=== PATIENT | male | born 1945 ===

== ENCOUNTER 2020-04-15 19:39 | Inpatient (IN) ==
[2020-04-16 09:58] LABS: Hemoglobin 12.8 gm/dL (13.5-18.0); Mean Cell Volume 89.7 fl (78-100); Mean Corpuscular Hgb Conc 31.2 g/dl (32-36); Mean Platelet Volume 8.9 fl (8-11.3); Neutrophil # 8.3 K/mm3 (1.3-6.0); Neutrophil % 88.2 % (42-75.0); Platelet Count 279 K/mm3 (150-450); Red Blood Count 4.57 M/mm3 (4.7-6.0); Red Cell Distribution Width 13.9 % (11.5-14.0); White Blood Count 9.4 K/mm3 (4.0-10.5)
[2020-04-16 10:11] LABS: Albumin * 3.1 gm/dl (3.4-5.0); Anion Gap 11.1 mmol/L (6.8-13.8); BUN/Creatinine Ratio 16.1 (9.0-21.6); Bilirubin, Total 0.6 mg/dL (0.0-1.1); Ca. Corrected For Albumin 9.1 mg/dL (8.4-10.2); Calcium * 8.7 mg/dL (7.9-10.9); Carbon Dioxide 29.2 mmol/L (24-32.6); Potassium 4.3 mmol/L (3.4-4.6); Total Protein 7.3 gm/dL (6.2-8.2)
[2020-04-16 10:14] LABS: Prothrombin Time (Patient) 13.1 Seconds (9.1-10.7)
[2020-04-16 10:16] LABS: INR 1.34 INR (0.92-1.08)
[2020-04-16] MEDS ORDERED: ENOXAPARIN SODIUM 40 MG/0.4 ML SYRG SC SCH (10:45)
[2020-04-16] MEDS: INSULIN LISPRO 100 UNITS/ML VIAL SC SCH ×4 (10:52→20:31)
[2020-04-16] MEDS ORDERED: INSULIN LISPRO 100 UNITS/ML VIAL SC SCH ×2 (11:00)
[2020-04-16] MEDS: SERTRALINE HCL 50 MG TABLET PO SCH (11:17)
[2020-04-16] MEDS: FUROSEMIDE 40 MG TABLET PO SCH (11:18)
[2020-04-16] MEDS: ACETAMINOPHEN 325 MG TABLET PO PRN ×2 (11:18→17:29)
[2020-04-16] MEDS: INSULIN GLARGINE,HUM.REC.ANLOG 100 UNITS/ML VIAL SC SCH ×2 (11:26→20:31)
--- NOTE | 2020-04-16 14:47 | HP ---
Chief Complaint - Chief Complaint Date of Service: 04/16/20 Time of Service: 10:50 Chief Complaint: Shortness of breath and cough History of Present Illness: 74-year-old male with a past medical history of diabetes mellitus type 2, pe ripheral venous insufficiency C, congestive heart failure, lymphedema, morbid obesity presents from home with complaints of shortness of breath and cough. He was seen in the emergency department at [facility] and was found to be positive for COVID-19. Due to a lack of available beds he was transferred to our facility. He is being admitted for management of COVID-19 pneumonia. Medical History (Last Updated 04/16/20 @ 01:18 by Babita Martinez RN) Congestive heart disease Diabetes Lymphedema Peripheral venous insufficiency Surgical History: Surgical History (Last Updated 04/16/20 @ 01:18 by Babita Martinez RN) Hx of appendectomy Hx of tonsillectomy Presence of stent in artery Family History: Family History (Last Updated 04/16/20 @ 01:19 by Babita Martinez RN) Father Parkinson disease Mother Pancreatic cancer Social History: (Last Updated 04/16/20 @ 01:21 by Babita Martinez RN) Social History: usp: No Marital status: / lives independently: Yes current occupational status: retired Tobacco: Smoking Status: Never smoker passive smoking exposure: No second hand exposure: No Alcohol: alcohol intake: never Review Of Systems (GEN) - Review of Systems Generalized/Overall Review: Absent: Fever Respiratory: Present: Cough, Shortness of Breath Cardiac: Absent: Chest Pain Abdominal: Absent: Abdominal Pain Misc: All systems neg except as marked Allergies/Adverse Reactions: Allergies Allergy/AdvReac Type Severity Reaction Status Date / Time No Known Allergies Allergy Unverified 04/16/20 01:13 Home Medications: HOME MEDICATIONS Atorvastatin Calcium 40 mg PO DAILY 04/16/20 [Last Taken Unknown] Carvedilol [Coreg] 3.125 mg PO BID 04/16/20 [Last Taken Unknown] Famotidine 10 mg PO BID 04/16/20 [Last Taken Unknown] Insulin Aspart [Novolog] 18 units SC AC 04/16/20 [Last Taken Unknown] Insulin Aspart [Novolog] 20 units SC AC 04/16/20 [Last Taken Unknown] Insulin Glargine,Hum.rec.anlog [Lantus] 46 units SC BID 04/16/20 [Last Taken Unknown] PARoxetine HCL [Paxil Cr] 12.5 mg PO QAM 04/16/20 [Last Taken Unknown] Sertraline HCl 50 mg PO DAILY 04/16/20 [Last Taken Unknown] Warfarin Sodium 10 mg PO DAILY 04/16/20 [Last Taken Unknown] Warfarin Sodium [Coumadin] 8 mg PO DAILY 04/16/20 [Last Taken Unknown] traMADol HCL [Tramadol HCl] 50 mg PO Q6H PRN 04/16/20 [Last Taken Unknown] Exam - Exam Vital Signs: Vital Signs - Last Taken Temp 36.7 C 04/16/20 11:36 Pulse 113 H 04/16/20 11:36 Resp 18 04/16/20 11:36 BP 144/72 04/16/20 11:36 Pulse Ox 99 04/16/20 11:36 Constitutional: Present: Alert, Cooperative, Well developed, Well nourished, No distress, Morbidly obese ENT Exam: Present: hearing grossly normal Eye Exam: bilateral eye: normal inspection, EOMI Neck: Present: non-tender, supple. Absent: lymphadenopathy (R), lymphadenopathy (L) Back Exam: Present: no CVA tenderness, no vertebral tenderness Respiratory: Present: no respiratory distress, no accessory muscle use, decreased breath sounds - Throughout all lung [place], No wheezing. Absent: crackles, rhonchi Cardiovascular/Chest: Present: normal peripheral pulses, regular rate, rhythm, no edema, no murmur Peripheral Pulses: dorsalis-pedis (R): 1+, dorsalis-pedis (L): 1+ Abdomen: Present: Normal bowel sounds, soft, nontender, obese Extremity: Present: no pedal edema Skin Exam: Present: normal color, warm/dry Neurologic: Present: alert, normal mood/affect Appearance: Present: appropriate appearance, appropriate insight Eye contact: Present: cooperative Thoughts: Present: normal mood /affect Diagnostic Studies: Abnormal Lab Results 04/16/20 04/16/20 04/16/20 Range/Units 09:52 09:52 09:52 RBC 4.57 L (4.7-6.0) M/mm3 Hgb 12.8 L (13.5-18.0) gm/dL Hct 41.0 L (42.0-52.0) % MCHC 31.2 L (32-36) g/dl Neutrophils % 88.2 H (42-75.0) % Lymphocytes % 4.9 L (20-51) % Neutrophils # 8.3 H (1.3-6.0) K/mm3 Lymphocytes # 0.46 L (1.5-3.5) k/mm3 PT 13.1 H (9.1-10.7) Seconds INR (Anticoag Therapy) 1.34 H (0.92-1.08) INR Random Glucose 296 H (70-110) mg/dL Albumin 3.1 L (3.4-5.0) gm/dl Laboratory Results WBC 9.4 K/mm3 (4.0-10.5) 04/16/20 09:52 RBC 4.57 M/mm3 (4.7-6.0) L 04/16/20 09:52 Hgb 12.8 gm/dL (13.5-18.0) L 04/16/20 09:52 Hct 41.0 % (42.0-52.0) L 04/16/20 09:52 MCV 89.7 fl (78-100) 04/16/20 09:52 MCH 28.0 pg (27-31) 04/16/20 09:52 MCHC 31.2 g/dl (32-36) L 04/16/20 09:52 RDW 13.9 % (11.5-14.0) 04/16/20 09:52 Plt Count 279 K/mm3 (150-450) 04/16/20 09:52 MPV 8.9 fl (8-11.3) 04/16/20 09:52 Immature Gran % (Auto) 0.30 % (0.001-0.429) 04/16/20 09:52 Immature Gran # (Auto) 0.03 K/mm3 (0.000-0.0310) 04/16/20 09:52 Neutrophils % 88.2 % (42-75.0) H 04/16/20 09:52 Lymphocytes % 4.9 % (20-51) L 04/16/20 09:52 Monocytes % 6.4 % (0.0-9) 04/16/20 09:52 Eosinophils % 0.0 % (0.0-3.0) 04/16/20 09:52 Basophils % 0.2 % (0.0-1.0) 04/16/20 09:52 Nucleated RBC % 0.0 k/mm3 (0-1) 04/16/20 09:52 Neutrophils # 8.3 K/mm3 (1.3-6.0) H 04/16/20 09:52 Lymphocytes # 0.46 k/mm3 (1.5-3.5) L 04/16/20 09:52 Monocytes # 0.6 k/mm3 (0.0-1.0) 04/16/20 09:52 Eosinophils # 0.0 k/mm3 (0.0-0.7) 04/16/20 09:52 Absolute Basophils 0.0 k/mm3 (0.0-0.1) 04/16/20 09:52 PT 13.1 Seconds (9.1-10.7) H 04/16/20 09:52 INR (Anticoag Therapy) 1.34 INR (0.92-1.08) H 04/16/20 09:52 Sodium 133 mmol/L (132-142) 04/16/20 09:52 Plasma Sodium 136 mmol/L (130-142) 04/16/20 09:52 Potassium 4.3 mmol/L (3.4-4.6) 04/16/20 09:52 Chloride 97 mmol/L (97-106) 04/16/20 09:52 Carbon Dioxide 29.2 mmol/L (24-32.6) 04/16/20 09:52 Anion Gap 11.1 mmol/L (6.8-13.8) 04/16/20 09:52 BUN 20 mg/dL (6-23) 04/16/20 09:52 Creatinine 1.24 mg/dL (0.4-1.4) 04/16/20 09:52 Est GFR (Non-Af Amer) 61 mL/min (60-130) 04/16/20 09:52 BUN/Creatinine Ratio 16.1 (9.0-21.6) 04/16/20 09:52 Random Glucose 296 mg/dL (70-110) H 04/16/20 09:52 Calcium 8.7 mg/dL (7.9-10.9) 04/16/20 09:52 Calcium Adj for Albumin 9.1 mg/dL (8.4-10.2) 04/16/20 09:52 Total Bilirubin 0.6 mg/dL (0.0-1.1) 04/16/20 09:52 AST 26 U/L (0-48) 04/16/20 09:52 ALT 41 U/L (19-67) 04/16/20 09:52 Alkaline Phosphatase 122 U/L (50-170) 04/16/20 09:52 Total Protein 7.3 gm/dL (6.2-8.2) 04/16/20 09:52 Albumin 3.1 gm/dl (3.4-5.0) L 04/16/20 09:52 Assessment/Plan - Narrative Narrative: 74-year-old male with a past medical history of diabetes mellitus type 2, peripheral venous insufficiency C, congestive heart failure, lymphedema, morbid obesity presents from home with complaints of shortness of breath and cough. He was seen in the emergency department at [facility] and was found to be positive for COVID-19. Due to a lack of available beds he was transferred to our facility. He is being admitted for management of COVID-19 pneumonia. Plan #1 continue with oxygen supplementation as needed with goal O2 greater than 90%, taper off of oxygen to baseline level as tolerated #2 resume home medications for comorbidities #3 DVT prophylaxis with Lovenox #4 CBC and CMP in the morning - Assessment/Plan (1) Pneumonia due to COVID-19 virus Problem: Acute (2) Congestive heart failure (CHF) Problem: Acute (3) Diabetes mellitus type 2 in obese Problem: Acute (4) Morbid obesity Problem: Acute (5) CAD (coronary artery disease) Problem: Acute (6) Depression Problem: Acute
[2020-04-16] MEDS ORDERED: WARFARIN SODIUM 10 MG TABLET PO SCH (17:00)
[2020-04-16] MEDS: ROSUVASTATIN CALCIUM 20 MG TABLET PO SCH (20:34)
[2020-04-16] MEDS: CARVEDILOL 6.25 MG TABLET PO SCH (20:34)
[2020-04-16] MEDS: traMADol HCL 50 MG TABLET PO PRN (20:34)
[2020-04-16] MEDS: FAMOTIDINE 20 MG TABLET PO SCH (20:35)
[2020-04-16] MEDS ORDERED: CARVEDILOL 3.125 MG TABLET PO SCH (21:00)
[2020-04-16] MEDS ORDERED: ONDANSETRON HCL/PF 2 MG/ML VIAL IV PRN (22:12)
[2020-04-17] MEDS: ACETAMINOPHEN 325 MG TABLET PO PRN ×3 (00:55→20:14)
[2020-04-17 06:50] LABS: Hematocrit 39.6 % (42.0-52.0); Hemoglobin 12.7 gm/dL (13.5-18.0); Mean Cell Volume 89.2 fl (78-100); Mean Corpuscular Hemoglobin 28.6 pg (27-31); Mean Corpuscular Hgb Conc 32.1 g/dl (32-36); Mean Platelet Volume 9.3 fl (8-11.3); Neutrophil # 9.1 K/mm3 (1.3-6.0); Platelet Count 296 K/mm3 (150-450); Red Blood Count 4.44 M/mm3 (4.7-6.0); Red Cell Distribution Width 14.1 % (11.5-14.0); White Blood Count 10.5 K/mm3 (4.0-10.5)
[2020-04-17 06:58] LABS: INR 1.22 INR (0.92-1.08)
[2020-04-17] MEDS: INSULIN LISPRO 100 UNITS/ML VIAL SC SCH ×4 (07:06→20:13)
[2020-04-17 07:09] LABS: Anion Gap 8.7 mmol/L (6.8-13.8); Bilirubin, Total 0.6 mg/dL (0.0-1.1); Ca. Corrected For Albumin 9.3 mg/dL (8.4-10.2); Calcium * 8.8 mg/dL (7.9-10.9); Carbon Dioxide 30.8 mmol/L (24-32.6); Potassium 3.5 mmol/L (3.4-4.6); Total Protein 6.9 gm/dL (6.2-8.2)
[2020-04-17] MEDS: FUROSEMIDE 40 MG TABLET PO SCH (09:03)
[2020-04-17] MEDS: FAMOTIDINE 20 MG TABLET PO SCH ×2 (09:04→20:14)
[2020-04-17] MEDS: CARVEDILOL 6.25 MG TABLET PO SCH (09:04)
[2020-04-17] MEDS: SERTRALINE HCL 50 MG TABLET PO SCH (09:04)
[2020-04-17] MEDS: PARoxetine HCL 10 MG TABLET PO SCH (09:05)
[2020-04-17] MEDS: INSULIN GLARGINE,HUM.REC.ANLOG 100 UNITS/ML VIAL SC SCH ×2 (09:11→20:12)
--- NOTE | 2020-04-17 10:39 | PN ---
Subjective - Date and Time Seen Date: 04/17/20 Time: 09:42 Subjective Narrative: He states he is tired because he has not been getting much sleep. Denies chest pain, shortness of breath. He does have a cough that is mildly productive. Objective - Review of Systems Generalized/Overall Review: Reports: Fever Respiratory: Reports: Cough. Denies: Shortness of Breath Cardiac: Denies: Chest Pain Abdominal: Denies: Abdominal Pain Misc: All systems neg except as marked - Vitals Vitals: Last Vital Signs Temp 37.0 C 04/17/20 09:01 Pulse 108 H 04/17/20 09:08 Resp 24 H 04/17/20 07:12 BP 145/63 04/17/20 09:04 Pulse Ox 99 04/17/20 09:32 - Abnormal Lab Findings Abnormal Lab Findings: Abnormal Lab Results 04/17/20 04/17/20 04/17/20 Range/Units 06:30 06:30 06:30 RBC 4.44 L (4.7-6.0) M/mm3 Hgb 12.7 L (13.5-18.0) gm/dL Hct 39.6 L (42.0-52.0) % RDW 14.1 H (11.5-14.0) % Immature Gran # (Auto) 0.04 H (0.000-0.0310) K/mm3 Neutrophils % 87.0 H (42-75.0) % Lymphocytes % 5.2 L (20-51) % Neutrophils # 9.1 H (1.3-6.0) K/mm3 Lymphocytes # 0.55 L (1.5-3.5) k/mm3 PT 12.0 H (9.1-10.7) Seconds INR (Anticoag Therapy) 1.22 H (0.92-1.08) INR BUN 27 H (6-23) mg/dL BUN/Creatinine Ratio 26.0 H (9.0-21.6) Random Glucose 133 H D (70-110) mg/dL Albumin 3.0 L (3.4-5.0) gm/dl - Exam Constitutional: Present: Alert, Cooperative, Well developed, Well nourished, No distress, Elderly, Morbidly obese ENT Exam: Present: hearing grossly normal Neck: Present: non-tender, supple. Absent: lymphadenopathy (R), lymphadenopathy (L) Respiratory: Present: lungs clear, no respiratory distress, no accessory muscle use, decreased breath sounds - Throughout all lung [place], No wheezing. Absent: crackles, rhonchi Cardiovascular/Chest: Present: normal peripheral pulses, regular rate, rhythm, no murmur, edema - 1+ pitting bilateral lower extremities Abdomen: Present: Normal bowel sounds, soft, nontender Extremity: Present: lower extremity edema - 1+ pitting bilaterally Skin Exam: Present: warm/dry. Absent: normal color - Hyperpigmentation of bilateral lower extremities Neurologic: Present: alert, normal mood/affect Appearance: Present: appropriate appearance Eye contact: Present: cooperative Thoughts: Present: normal mood /affect Assessment/Plan Plan Narrative: 74-year-old male with a past medical history of diabetes mellitus type 2, peripheral venous insufficiency C, congestive heart failure, lymphedema, morbid obesity presents from home with complaints of shortness of breath and cough. He was seen in the emergency department at [facility] and was found to be positive for COVID-19. Due to a lack of available beds he was transferred to our facility. He is being admitted for management of COVID-19 pneumonia. He is doing better today and when he is awake his O2 sats are stable at room air. His O2 sat drops when he sleeps. He did denies any history of sleep apnea. He continues to spike fevers. He is not stable for discharge today and we will continue observing the patient. I will start him on dexamethasone and Ventolin. Plan #1 continue with oxygen supplementation as needed with goal O2 greater than 90%, taper off of oxygen to baseline level as tolerated #2 resume home medications for comorbidities #3 DVT prophylaxis with Lovenox until he is therapeutic on warfarin, then discontinue lovenox #4 CBC and CMP in the morning #5 start Ventolin and dexamethasone 6 mg daily - Problems/Diagnosis (1) Pneumonia due to COVID-19 virus Problem: Acute (2) Congestive heart failure (CHF) Problem: Acute (3) Diabetes mellitus type 2 in obese Problem: Acute (4) Morbid obesity Problem: Acute (5) CAD (coronary artery disease) Problem: Acute (6) Depression Problem: Acute
[2020-04-17] MEDS: ALBUTEROL SULFATE 200 PUFF INHALER IH PRN (11:09)
[2020-04-17] MEDS: ENOXAPARIN SODIUM 40 MG/0.4 ML SYRG SC SCH (11:09)
[2020-04-17] MEDS: DEXAMETHASONE 2 MG TABLET PO SCH (12:17)
[2020-04-17] MEDS: traMADol HCL 50 MG TABLET PO PRN (15:10)
[2020-04-17] MEDS ORDERED: CARVEDILOL 6.25 MG TABLET PO ONE (16:57)
[2020-04-17] MEDS: WARFARIN SODIUM 4 MG TABLET PO SCH (17:32)
[2020-04-17] MEDS: ROSUVASTATIN CALCIUM 20 MG TABLET PO SCH (20:14)
[2020-04-17] MEDS: CARVEDILOL 12.5 MG TABLET PO SCH (20:14)
[2020-04-18] MEDS: ACETAMINOPHEN 325 MG TABLET PO PRN ×3 (03:38→20:26)
[2020-04-18 07:09] LABS: Hematocrit 39.1 % (42.0-52.0); Hemoglobin 12.9 gm/dL (13.5-18.0); Mean Cell Volume 87.1 fl (78-100); Mean Corpuscular Hemoglobin 28.7 pg (27-31); Mean Platelet Volume 9.1 fl (8-11.3); Neutrophil # 9.7 K/mm3 (1.3-6.0); Neutrophil % 87.7 % (42-75.0); Platelet Count 297 K/mm3 (150-450); Red Blood Count 4.49 M/mm3 (4.7-6.0); Red Cell Distribution Width 13.9 % (11.5-14.0); White Blood Count 11.1 K/mm3 (4.0-10.5)
[2020-04-18 07:16] LABS: Prothrombin Time (Patient) 13.4 Seconds (9.1-10.7)
[2020-04-18 07:17] LABS: INR 1.37 INR (0.92-1.08)
[2020-04-18 07:26] LABS: Anion Gap 8.3 mmol/L (6.8-13.8); BUN/Creatinine Ratio 23.9 (9.0-21.6); Bilirubin, Total 0.7 mg/dL (0.0-1.1); Ca. Corrected For Albumin 9.3 mg/dL (8.4-10.2); Calcium * 8.8 mg/dL (7.9-10.9); Carbon Dioxide 33.1 mmol/L (24-32.6); Potassium 3.4 mmol/L (3.4-4.6); Total Protein 7.2 gm/dL (6.2-8.2)
[2020-04-18] MEDS: INSULIN LISPRO 100 UNITS/ML VIAL SC SCH ×4 (07:48→20:38)
[2020-04-18] MEDS: CARVEDILOL 12.5 MG TABLET PO SCH ×2 (08:43→20:26)
[2020-04-18] MEDS: FAMOTIDINE 20 MG TABLET PO SCH ×2 (08:43→20:27)
[2020-04-18] MEDS: DEXAMETHASONE 2 MG TABLET PO SCH (08:43)
[2020-04-18] MEDS: SERTRALINE HCL 50 MG TABLET PO SCH (08:43)
[2020-04-18] MEDS: PARoxetine HCL 10 MG TABLET PO SCH (08:43)
[2020-04-18] MEDS: FUROSEMIDE 40 MG TABLET PO SCH (08:43)
[2020-04-18] MEDS: INSULIN GLARGINE,HUM.REC.ANLOG 100 UNITS/ML VIAL SC SCH ×2 (08:44→20:38)
[2020-04-18] MEDS: ENOXAPARIN SODIUM 40 MG/0.4 ML SYRG SC SCH (10:18)
[2020-04-18] MEDS: CODEINE PHOSPHATE/GUAIFENESIN 5 ML UDC PO PRN ×2 (13:13→19:06)
--- NOTE | 2020-04-18 16:40 | PN ---
Subjective - Date and Time Seen Date: 04/18/20 Time: 12:40 Subjective Narrative: Jeremiah Dawkins is a 74-year-old white male patient of Dr. Davis who was admitted 2 days ago. He is admitted for COVID-19 pneumonia and hypoxemia. He has improved significantly since being here. His initial O2 sat was 85% on admission and is between 93 and 95% mostly on room air today. Blood pressure is good. Is a been afebrile until today and he spiked a low-grade temp. The hemoglobin is stable at 12.9 g. The INR still subtherapeutic at 1.37. The white count is 11,100. Chemistries were otherwise okay. Objective - Review of Systems Generalized/Overall Review: Reports: No Symptoms Reported, Weakness, Fever, Malaise EENTM: Reports: No Symptoms Reported Respiratory: Reports: Cough, Shortness of Breath Cardiac: Reports: No Symptoms Reported Abdominal: Reports: No Symptoms Reported Genitourinary Symptoms: Reports: No Symptoms Reported Musculoskeletal Complaints: Reports: No Symptoms Reported Neurological: Reports: Other - Complains of difficulty sleeping and I suspect it is the steroids Skin: Reports: No Symptoms Reported Endocrine: Reports: No Symptoms Reported Misc: All systems neg except as marked - Vitals Vitals: Last Vital Signs Temp 37.1 C 04/18/20 14:29 Pulse 94 04/18/20 14:29 Resp 24 H 04/18/20 14:29 BP 126/64 04/18/20 14:29 Pulse Ox 93 04/18/20 14:29 - Abnormal Lab Findings Abnormal Lab Findings: Abnormal Lab Results 04/18/20 04/18/20 04/18/20 Range/Units 06:55 06:55 06:55 WBC 11.1 H (4.0-10.5) K/mm3 RBC 4.49 L (4.7-6.0) M/mm3 Hgb 12.9 L (13.5-18.0) gm/dL Hct 39.1 L (42.0-52.0) % Immature Gran % (Auto) 0.50 H (0.001-0.429) % Immature Gran # (Auto) 0.05 H (0.000-0.0310) K/mm3 Neutrophils % 87.7 H (42-75.0) % Lymphocytes % 4.5 L (20-51) % Neutrophils # 9.7 H (1.3-6.0) K/mm3 Lymphocytes # 0.50 L (1.5-3.5) k/mm3 PT 13.4 H (9.1-10.7) Seconds INR (Anticoag Therapy) 1.37 H (0.92-1.08) INR Chloride 94 L (97-106) mmol/L Carbon Dioxide 33.1 H (24-32.6) mmol/L BUN 26 H (6-23) mg/dL BUN/Creatinine Ratio 23.9 H (9.0-21.6) Random Glucose 157 H (70-110) mg/dL Albumin 3.0 L (3.4-5.0) gm/dl - Exam Constitutional: Present: Alert, Oriented x3, Cooperative, Well developed, Well nourished, No distress ENT Exam: Present: normal ENT inspection, hearing grossly normal, pharynx normal, TMs normal Neck: Present: non-tender, full range of motion, supple, normal inspection, trachea midline Breasts: Present: Exam deferred Respiratory: Present: chest non-tender, lungs clear, decreased breath sounds Cardiovascular/Chest: Present: normal peripheral pulses, regular rate, rhythm, no chest tenderness, no edema, no gallop, no JVD, no murmur Abdomen: Present: Normal bowel sounds, soft, nontender, nondistended, no rebound tenderness, no hepatospenomegaly, no masses /Rectal: Present: Exam deferred Extremity: Present: normal range of motion, non-tender, normal inspection, no pedal edema, no calf tenderness, normal capillary refill Skin Exam: Present: normal color, warm/dry, no cyanosis Lymphatic: Present: no adenopathy Neurologic: Present: surgical instruments inspector II-XII nml as tested, normal cerebellar test, no motor/sensory deficits, alert, normal mood/affect Appearance: Present: appropriate appearance, appropriate insight, neat, no memory impairment Eye contact: Present: cooperative, good eye contact, normal speech Thoughts: Present: normal thought pattern, no apparent hallucination Assessment/Plan Plan Narrative: 1. Chest x-ray and EKG tomorrow morning 2. CBC and CMP tomorrow morning 3. If he is stable and continues to improve and he will possibly be discharged tomorrow. - Problems/Diagnosis (1) Pneumonia due to COVID-19 virus Problem: Acute (2) Diabetes mellitus type 2 in obese Problem: Acute (3) Morbid obesity Problem: Acute (4) CAD (coronary artery disease) Problem: Acute Qualifiers: Coronary Disease-Associated Artery/Lesion type: [place] artery [place] vs. transplanted heart: [place] heart Associated angina: without angina Qualified Code(s): I25.10 - Atherosclerotic heart disease of [place] coronary artery without angina pectoris
[2020-04-18] MEDS: WARFARIN SODIUM 4 MG TABLET PO SCH (17:19)
[2020-04-18] MEDS: ALBUTEROL SULFATE 200 PUFF INHALER IH PRN (20:26)
[2020-04-18] MEDS: ROSUVASTATIN CALCIUM 20 MG TABLET PO SCH (20:27)
[2020-04-19] MEDS: CODEINE PHOSPHATE/GUAIFENESIN 5 ML UDC PO PRN (01:07)
[2020-04-19] MEDS: traMADol HCL 50 MG TABLET PO PRN (01:15)
[2020-04-19] MEDS: ACETAMINOPHEN 325 MG TABLET PO PRN ×2 (04:58→14:13)
[2020-04-19 07:24] LABS: Hematocrit 40.2 % (42.0-52.0); Mean Cell Volume 87.2 fl (78-100); Mean Corpuscular Hemoglobin 28.2 pg (27-31); Mean Corpuscular Hgb Conc 32.3 g/dl (32-36); Mean Platelet Volume 9.7 fl (8-11.3); Neutrophil # 8.8 K/mm3 (1.3-6.0); Neutrophil % 86.3 % (42-75.0); Platelet Count 336 K/mm3 (150-450); Red Blood Count 4.61 M/mm3 (4.7-6.0); White Blood Count 10.2 K/mm3 (4.0-10.5)
[2020-04-19] MEDS: INSULIN LISPRO 100 UNITS/ML VIAL SC SCH ×2 (07:24→11:58)
[2020-04-19 07:28] LABS: Prothrombin Time (Patient) 16.6 Seconds (9.1-10.7)
[2020-04-19 07:29] LABS: INR 1.71 INR (0.92-1.08)
[2020-04-19 07:34] LABS: Anion Gap 15.1 mmol/L (6.8-13.8); BUN/Creatinine Ratio 24.8 (9.0-21.6); Bilirubin, Total 0.6 mg/dL (0.0-1.1); Ca. Corrected For Albumin 9.4 mg/dL (8.4-10.2); Calcium * 8.9 mg/dL (7.9-10.9); Carbon Dioxide 29.1 mmol/L (24-32.6); Potassium 3.2 mmol/L (3.4-4.6); Total Protein 7.2 gm/dL (6.2-8.2)
[2020-04-19] MEDS: FUROSEMIDE 40 MG TABLET PO SCH (08:40)
[2020-04-19] MEDS: CARVEDILOL 12.5 MG TABLET PO SCH (08:40)
[2020-04-19] MEDS: DEXAMETHASONE 2 MG TABLET PO SCH (08:41)
[2020-04-19] MEDS: FAMOTIDINE 20 MG TABLET PO SCH (08:41)
[2020-04-19] MEDS: SERTRALINE HCL 50 MG TABLET PO SCH (08:42)
[2020-04-19] MEDS: PARoxetine HCL 10 MG TABLET PO SCH (08:42)
[2020-04-19] MEDS: INSULIN GLARGINE,HUM.REC.ANLOG 100 UNITS/ML VIAL SC SCH (08:55)
[2020-04-19] MEDS: ENOXAPARIN SODIUM 40 MG/0.4 ML SYRG SC SCH (10:51)
--- NOTE | 2020-04-19 15:23 | DS ---
(1) Pneumonia due to COVID-19 virus Problem: Acute (2) Diabetes mellitus type 2 in obese Problem: Acute (3) Morbid obesity Problem: Acute (4) CAD (coronary artery disease) Problem: Acute Qualifiers: Coronary Disease-Associated Artery/Lesion type: [place] artery [place] vs. transplanted heart: [place] heart Associated angina: without angina Qualified Code(s): I25.10 - Atherosclerotic heart disease of [place] coronary artery without angina pectoris Date of Discharge:: 04/19/20 Hospital Course: Jeremiah Dawkins is a 74-year-old white male patient of Dr. Davis who was admitted 2 days ago. He is admitted for COVID-19 pneumonia and hypoxemia. He has improved significantly since being here. His initial O2 sat was 85% on admission and is between 93 and 95% mostly on room air today. Blood pressure is good. Is a been afebrile until today and he spiked a low-grade temp. The hemoglobin is stable at 12.9 g. The INR still subtherapeutic at 1.37. The white count is 11,100. Chemistries were otherwise okay. Today's vital signs show pulse of 97, BP 121/64, respirations 20, and O2 sats 95%. The chest x-ray shows a right lung infiltrate. The the lab work shows CBC is normal without change. The INR is up to 1.7 and is up from 1.37 yesterday. Potassium has dropped slightly to 3.2 from 3.4 yesterday. EGFR is normal at 68. The glucose is 140 and down from 151 yesterday. And the albumin is a bit low at 3.0 but it is stable and has been the same the last 3 days. At this time he is breathing well. He is on room air with good oxygen saturation of 95%. He may be discharged to continue quarantining at home for the next 2 weeks. Procedures Performed: none Care Plan Goals: quarenteen 2 weeks at home Results and Findings: Lab Pending Results 04/16/20 09:52: WBC 9.4, RBC 4.57 L, Hgb 12.8 L, Hct 41.0 L, MCV 89.7, MCH 28.0, MCHC 31.2 L, RDW 13.9, Plt Count 279, MPV 8.9, Immature Gran % (Auto) 0.30, Immature Gran # (Auto) 0.03, Neutrophils % 88.2 H, Lymphocytes % 4.9 L, Monocytes % 6.4, Eosinophils % 0.0, Basophils % 0.2, Nucleated RBC % 0.0, Neutrophils # 8.3 H, Lymphocytes # 0.46 L, Monocytes # 0.6, Eosinophils # 0.0, Absolute Basophils 0.0 04/16/20 09:52: Sodium 133, Plasma Sodium 136, Potassium 4.3, Chloride 97, Carbon Dioxide 29.2, Anion Gap 11.1, BUN 20, Creatinine 1.24, Est GFR (Non-Af Amer) 61, BUN/Creatinine Ratio 16.1, Random Glucose 296 H, Calcium 8.7, Calcium Adj for Albumin 9.1, Total Bilirubin 0.6, AST 26, ALT 41, Alkaline Phosphatase 122, Total Protein 7.3, Albumin 3.1 L 04/16/20 09:52: PT 13.1 H, INR (Anticoag Therapy) 1.34 H 04/17/20 06:30: PT 12.0 H, INR (Anticoag Therapy) 1.22 H 04/17/20 06:30: WBC 10.5, RBC 4.44 L, Hgb 12.7 L, Hct 39.6 L, MCV 89.2, MCH 28.6, MCHC 32.1, RDW 14.1 H, Plt Count 296, MPV 9.3, Immature Gran % (Auto) 0.40, Immature Gran # (Auto) 0.04 H, Neutrophils % 87.0 H, Lymphocytes % 5.2 L, Monocytes % 7.1, Eosinophils % 0.0, Basophils % 0.3, Nucleated RBC % 0.0, Neutrophils # 9.1 H, Lymphocytes # 0.55 L, Monocytes # 0.8, Eosinophils # 0.0, Absolute Basophils 0.0 04/17/20 06:30: Sodium 133, Plasma Sodium 134, Potassium 3.5, Chloride 97, Carbon Dioxide 30.8, Anion Gap 8.7, BUN 27 H, Creatinine 1.04, Est GFR (Non-Af Amer) 75 D, BUN/Creatinine Ratio 26.0 H, Random Glucose 133 H D, Calcium 8.8, Calcium Adj for Albumin 9.3, Total Bilirubin 0.6, AST 26, ALT 30, Alkaline Phosphatase 105, Total Protein 6.9, Albumin 3.0 L 11/14/20 06:55: PT 13.4 H, INR (Anticoag Therapy) 1.37 H 04/18/20 06:55: WBC 11.1 H, RBC 4.49 L, Hgb 12.9 L, Hct 39.1 L, MCV 87.1, MCH 28.7, MCHC 33.0, RDW 13.9, Plt Count 297, MPV 9.1, Immature Gran % (Auto) 0.50 H, Immature Gran # (Auto) 0.05 H, Neutrophils % 87.7 H, Lymphocytes % 4.5 L, Monocytes % 7.1, Eosinophils % 0.0, Basophils % 0.2, Nucleated RBC % 0.0, Neutrophils # 9.7 H, Lymphocytes # 0.50 L, Monocytes # 0.8, Eosinophils # 0.0, Absolute Basophils 0.0 04/18/20 06:55: Sodium 132, Plasma Sodium 133, Potassium 3.4, Chloride 94 L, Carbon Dioxide 33.1 H, Anion Gap 8.3, BUN 26 H, Creatinine 1.09, Est GFR (Non-Af Amer) 71, BUN/Creatinine Ratio 23.9 H, Random Glucose 157 H, Calcium 8.8, Calcium Adj for Albumin 9.3, Total Bilirubin 0.7, AST 25, ALT 28, Alkaline Phosphatase 98, Total Protein 7.2, Albumin 3.0 L 04/19/20 06:40: PT 16.6 H, INR (Anticoag Therapy) 1.71 H 04/19/20 06:40: WBC 10.2, RBC 4.61 L, Hgb 13.0 L, Hct 40.2 L, MCV 87.2, MCH 28.2, MCHC 32.3, RDW 14.0, Plt Count 336, MPV 9.7, Immature Gran % (Auto) 0.50 H, Immature Gran # (Auto) 0.05 H, Neutrophils % 86.3 H, Lymphocytes % 5.1 L, Monocytes % 7.8, Eosinophils % 0.1, Basophils % 0.2, Nucleated RBC % 0.0, Neutrophils # 8.8 H, Lymphocytes # 0.52 L, Monocytes # 0.8, Eosinophils # 0.0, Absolute Basophils 0.0 04/19/20 06:40: Sodium 133, Plasma Sodium 134, Potassium 3.2 L, Chloride 92 L, Carbon Dioxide 29.1, Anion Gap 15.1 H, BUN 28 H, Creatinine 1.13, Est GFR (Non- Af Amer) 68, BUN/Creatinine Ratio 24.8 H, Random Glucose 140 H, Calcium 8.9, Calcium Adj for Albumin 9.4, Total Bilirubin 0.6, AST 25, ALT 24, Alkaline Phosphatase 96, Total Protein 7.2, Albumin 3.0 L Discharge Location: Home Disposition: Home Health Service Home Health Agency: [facility] Home Health Condition: Fair Face to Face Encounter completed per [facility] Guidelines: No Discharge Activity: Activity as tolerated Discharge Diet: Consistent carbs Referrals: Irene Tena ARNP [Primary Care Provider] - Additional Patient Instructions (free text): [facility] Home Health ongoing, please call and fax discharge information to them. See PCP in 2 weeks. Complete Home Medications List: Complete Home Medication List: Atorvastatin Calcium 40 mg PO DAILY 04/16/20 Carvedilol [Coreg] 3.125 mg PO BID 04/16/20 Famotidine 10 mg PO BID 04/16/20 Insulin Aspart [Novolog] 18 units SC AC 04/16/20 Insulin Aspart [Novolog] 20 units SC AC 04/16/20 Insulin Glargine,Hum.rec.anlog [Lantus] 46 units SC BID 04/16/20 PARoxetine HCL [Paxil Cr] 12.5 mg PO QAM 04/16/20 Sertraline HCl 50 mg PO DAILY 04/16/20 Warfarin Sodium 10 mg PO DAILY 04/16/20 Warfarin Sodium [Coumadin] 8 mg PO DAILY 04/16/20 traMADol HCL [Tramadol HCl] 50 mg PO Q6H PRN 04/16/20 Acetaminophen [Tylenol] 650 mg PO TID PRN tablet 04/19/20 Albuterol Sulfate [Ventolin HFA] 1 puff INHALATION Q6H PRN #1 inhaler 04/19/20 Carvedilol [Coreg] 12.5 mg PO BID #60 tab 04/19/20 Codeine Phosphate/Guaifenesin [Guiatuss AC Syrup] 10 ml PO Q4H PRN #120 ml 04/19/20 Dexamethasone [Decadron] 6 mg PO DAILY #5 tab 04/19/20 Furosemide [Lasix] 40 mg PO DAILY #30 tab 04/19/20 Insulin Lispro [Humalog] See Protocol SC AC #1 vial 04/19/20 Potassium Chloride [Klor-Con 10] 10 meq PO BIDWM #60 tablet.sa 04/19/20
[2020-04-19] MEDS ORDERED: POTASSIUM CHLORIDE 10 MEQ TABLET.SA PO SCH (17:00)
[2020-04-19 17:33] VITALS: BP 121/53
== END 2020-04-19 17:25 | disposition home health service (06) | DRG 177 ==
LOC: MS 19:39
PROVIDERS: ADMIT Internal Medicine; ATTEND Internal Medicine